=== PATIENT | female | born 1955 | race Caucasian/White ===

== ENCOUNTER 2020-08-04 18:28 | Emergency (ER) | payer MEDICARE ==
[2020-08-04 20:08] LABS: BUN/CREATININE RATIO 15 (0-10)
[2020-08-04 20:10] LABS: HEMOGLOBIN 13.1 gm/dl (12.3-15.3); RED BLOOD COUNT 4.35 M/UL (4.00-5.10); WHITE BLOOD COUNT 2.3 K/UL (4.5-11.0)
[2020-08-04 23:21] LABS: BORDETELLA PARAPERTUSSIS Not Detected (Not Detectd); BORDETELLA PERTUSSIS Not Detected (Not Detectd); CHLAMYDIA PNEUMONIAE Not Detected (Not Detectd); CORONAVIRUS HKU1 Not Detected (Not Detectd); CORONAVIRUS NL63 Not Detected (Not Detectd); CORONAVIRUS OC43 Not Detected (Not Detectd); CORONOAVIRUS 229E Not Detected (Not Detectd); HUMAN METAPNEUMOVIRUS Not Detected (Not Detectd); HUMAN RHINOVIRUS/ENTEROVIRUS Not Detected (Not Detectd); INFLUENZA A Not Detected (Not Detectd); INFLUENZA B Not Detected (Not Detectd); MYCOPLASMA PNEUMONIAE Not Detected (Not Detectd); PARAINFLUENZA VIRUS 1 Not Detected (Not Detectd); PARAINFLUENZA VIRUS 2 Not Detected (Not Detectd); PARAINFLUENZA VIRUS 3 Not Detected (Not Detectd); PARAINFLUENZA VIRUS 4 Not Detected (Not Detectd); RESPIRATORY SYNCYTIAL VIRUS Not Detected (Not Detectd)
[2020-08-05 00:13] LABS: SARS-CoV-2 NOT DETECTED (Not Detectd)
[2020-08-05] MEDS ORDERED: VIBRAMYCIN 100100 MG PO (01:01)
[2020-08-05] MEDS ORDERED: DOXYCYCLINE HY100 MG PO (01:01)
== END 2020-08-05 01:10 | disposition home or self-care (01) ==
LOC: ER1 18:28
PROVIDERS: Physician Assistant
DX: D72.819 Decreased white blood cell count, unspecified (principal); R31.9 Hematuria, unspecified; Z20.822 Contact with and (suspected) exposure to COVID-19; Z90.89 Acquired absence of other organs
CPT/HCPCS: 0240U; 71046; 80053; 81001; 83605; 85025; 86757; 87040; 87081; 87086; 87633; 87880; 99283

== ENCOUNTER → 2020-12-11 | Outpatient (CLI) | payer OTHER ==
[~2020-12-11] MED LIST: DOXYCYCLINE HY100 MG PO; VIBRAMYCIN 100100 MG PO
[2020-12-11 10:57] LABS: HEMOGLOBIN 13.8 gm/dl (12.3-15.3); RED BLOOD COUNT 4.41 M/UL (4.00-5.10); WHITE BLOOD COUNT 5.1 K/UL (4.5-11.0)
[2020-12-11 12:20] LABS: URINE TOTAL PROTEIN 9 mg/dl
[2020-12-11 12:26] LABS: URINE CREATININE 51.4 mg/dL
[2020-12-11 12:56] LABS: GAMMA GLUTAMYL TRANSPEPTIDASE 18 U/L (7-64)
[2020-12-11 13:08] LABS: BUN/CREATININE RATIO 17 (0-10)
== END ==
LOC: LAB 09:44
PROVIDERS: Transplant Surgery
DX: Z00.5 Encounter for examination of potential donor of organ and tissue (principal)
CPT/HCPCS: 36415; 80053; 82550; 82570; 82575; 82977; 83036; 83615; 84100; 84156; 84550; 85027; 86900; 86901

== ENCOUNTER → 2021-04-22 | Outpatient (CLI) | payer OTHER | LOC: LAB 09:16 | PROVIDERS: Transplant Surgery | DX: Z52.4 Kidney donor (principal); Z90.5 Acquired absence of kidney | CPT/HCPCS: 80069 ==

== ENCOUNTER → 2021-04-29 | Outpatient (CLI) | payer OTHER | LOC: LAB 11:04 | DX: Z52.4 Kidney donor (principal); Z90.5 Acquired absence of kidney | CPT/HCPCS: 81001 ==

== ENCOUNTER → 2021-09-13 | Outpatient (CLI) | payer MEDICARE | LOC: EXRD 13:41 | DX: M81.0 Age-related osteoporosis without current pathological fracture (principal) | CPT/HCPCS: 77080 ==

== ENCOUNTER → 2021-09-21 | Outpatient (CLI) | payer OTHER, MEDICARE ==
[2021-09-23 07:01] LABS: CREATININE, URINE 51.7 mg/dL
[2021-09-23 07:02] LABS: PROTEIN,TOTAL,URINE 4.4 mg/dL; PROTEIN/CREAT RATIO 85 mg/g creat
== END ==
LOC: LAB 14:55
PROVIDERS: Transplant Surgery
DX: Z52.4 Kidney donor (principal); Z90.5 Acquired absence of kidney
CPT/HCPCS: 36415; 80069; 81001; 82043; 82570; 84156